=== PATIENT | male | born 1965 | race Caucasian/White ===

== ENCOUNTER → 2019-07-09 | Outpatient (CLI) | payer OTHER ==
--- NOTE | 2019-07-09 12:50 | EKG ---
[place] [address] ELECTROCARDIOGRAM REPORT Name: VEL TURNER Room: [facility]#: [id number] Admission: 07/09/19 Attend Phys: Oumou Melendez, Discharge: Date of : 65 Date of Service: 07/09/19 1042 Report #: [id number] THIS REPORT FOR: //name// [facility] Test Date: 2019-07-09 Test Time: 10:42:26 Pat Name: VEL TURNER Department: Room: Gender: [employer] Operator: : 1965 Requested By: Oumou Melendez Order Number: [id number] Reading MD: Vel Fabian Measurements Intervals [place] Rate: 55 P: 33 [place]: 183 QRS: -59 QRSD: 119 T: 5 QT: 441 QTc: 422 Interpretive Statements Sinus bradycardia Left anterior fascicular block No previous ECG available for comparison Electronically Signed On 07-09-2019 12:48:37 CDT by Vel Fabian [email or web address] <ELECTRONICALLY SIGNED> By: Vel Fabian MD, [facility] 07/09/19 1248 1042 1042 Vel Fabian MD, FACC /EPI
== END ==
LOC: M.CRD 10:23
DX: I44.4 Left anterior fascicular block (principal); R00.1 Bradycardia, unspecified